=== PATIENT | female | born 1955 | race Caucasian/White ===

== ENCOUNTER → 2022-03-26 | Outpatient (CLI) | payer OTHER ==
[~2022-03-26] MED LIST: ACET325 PO; CETI5 PO; Estrace Vagin42.5 GM VAG; IBUP600 PO; PANT20 PO; Synthroid125 MCG PO; [UNRECOGNIZED DRUG - OTHER] PO
== END | disposition home or self-care (01) ==
LOC: LAB 10:47 → LAB SHORT 10:47 → PLD 10:47
DX: D48.5 Neoplasm of uncertain behavior of skin (principal)
CPT/HCPCS: 88305

== ENCOUNTER → 2022-12-18 | Outpatient (CLI) | payer OTHER | END | disposition home or self-care (01) | LOC: LAB SHORT 10:12 → LAB 10:12 | DX: D48.5 Neoplasm of uncertain behavior of skin (principal) | CPT/HCPCS: 88305 ==

== ENCOUNTER → 2023-02-18 | Outpatient (CLI) | payer OTHER | LOC: LAB 11:49 → LAB SHORT 11:49 | DX: L08.0 Pyoderma (principal) | CPT/HCPCS: 87070; 87205 ==